=== PATIENT | male | born 1980 | race Caucasian/White ===

== ENCOUNTER 2024-12-03 01:56 | Day surgery (SDC) | payer MEDICAID, SELFPAY ==
--- OUTSIDE RECORDS SUMMARY | 2023-12-27 05:31 | XMS_ITS | Continuity of Care Document ---
Author Organization [facility] Address [address] [facility] [address] [place] [address] Phone Care Team Providers Care Ring Conductor Name Role Phone Keith Ibarra Unavailable Unavailable Procedures Procedure Date Therapeutic Activities Neuromuscular Re-Ed Therapeutic Exercise Hot or Cold Pack Therapeutic Activities Neuromuscular Re-Ed Therapeutic Exercise Hot or Cold Pack Neuromuscular Re-Ed Therapeutic Exercise Hot or Cold Pack Therapeutic Activities Neuromuscular Re-Ed Therapeutic Exercise Progress Note Therapeutic Activities Neuromuscular Re-Ed Therapeutic Exercise Therapeutic Activities Neuromuscular Re-Ed Therapeutic Exercise Hot or Cold Pack Therapeutic Activities Neuromuscular Re-Ed Therapeutic Exercise Hot or Cold Pack Therapeutic Activities Neuromuscular Re-Ed Therapeutic Exercise Hot or Cold Pack Therapeutic Activities Neuromuscular Re-Ed Therapeutic Exercise PT Evaluation Moderate Complexity Neuromuscular Re-Ed Therapeutic Exercise Progress Note Therapeutic Activities Neuromuscular Re-Ed Therapeutic Exercise Manual Therapy Hot or Cold Pack Therapeutic Activities Neuromuscular Re-Ed Therapeutic Exercise Manual Therapy Therapeutic Activities Neuromuscular Re-Ed Therapeutic Exercise Manual Therapy Hot or Cold Pack Therapeutic Activities Therapeutic Exercise Neuromuscular Re-Ed Manual Therapy Therapeutic Activities Hot or Cold Pack Neuromuscular Re-Ed Manual Therapy Therapeutic Exercise Progress Note Therapeutic Activities Neuromuscular Re-Ed Therapeutic Exercise Manual Therapy Hot or Cold Pack Therapeutic Activities Neuromuscular Re-Ed Therapeutic Exercise Therapeutic Activities Neuromuscular Re-Ed Therapeutic Exercise PT Re-evaluation Therapeutic Activities Neuromuscular Re-Ed Therapeutic Exercise Therapeutic Activities Neuromuscular Re-Ed Therapeutic Exercise Manual Therapy Hot or Cold Pack Therapeutic Activities Therapeutic Exercise Neuromuscular Re-Ed Therapeutic Activities Manual Therapy Therapeutic Exercise Neuromuscular Re-Ed Hot or Cold Pack Therapeutic Activities Therapeutic Exercise Neuromuscular Re-Ed Hot or Cold Pack Therapeutic Activities Neuromuscular Re-Ed Therapeutic Exercise Hot or Cold Pack Therapeutic Activities Neuromuscular Re-Ed Therapeutic Exercise Manual Therapy Hot or Cold Pack PT Re-evaluation Therapeutic Activities Neuromuscular Re-Ed Therapeutic Exercise Manual Therapy Hot or Cold Pack Therapeutic Activities Neuromuscular Re-Ed Therapeutic Exercise Manual Therapy Hot or Cold Pack Therapeutic Activities Neuromuscular Re-Ed Therapeutic Exercise Manual Therapy Hot or Cold Pack Therapeutic Activities Neuromuscular Re-Ed Therapeutic Exercise Manual Therapy PT Evaluation Moderate Complexity Neuromuscular Re-Ed Therapeutic Exercise Manual Therapy Therapeutic Activities Neuromuscular Re-Ed Therapeutic Exercise Therapeutic Activities Neuromuscular Re-Ed Therapeutic Exercise Therapeutic Activities Neuromuscular Re-Ed Therapeutic Exercise Therapeutic Activities Neuromuscular Re-Ed Therapeutic Exercise Therapeutic Activities Neuromuscular Re-Ed Therapeutic Exercise Manual Therapy Therapeutic Activities Neuromuscular Re-Ed Therapeutic Exercise Manual Therapy Therapeutic Activities Neuromuscular Re-Ed Therapeutic Exercise Manual Therapy PT Evaluation Moderate Complexity Therapeutic Activities Neuromuscular Re-Ed Manual Therapy Advance Directives Directive Yes / No Effective Date File Name No Information Encounters Encounter Description Practice Location Reason(s) For Visit Diagnoses Date Provider Providers Copied on Encounter [facility] [address] [place] [address], [place], [place], [id number], tel:[phone] Pres[place] No Information 4 Claudette Parker. [address] [facility], [address], [place], [address], [place]. tel:[phone] [facility] [address] [address], [place], [place], [id number], tel:[phone] [place] No Information 4 Dana Mehdi. . Referring Provider: Mingo Bass, [address] [place] [address] [address], [place], [address]. tel:[phone] [facility] [address] [address], [place], [place], [id number], [place] tel:[phone] [place] No Information 4 Dana Mehdi. . Referring Provider: Mingo Bass, [address] [place] [address] [address], [place], [address]. tel:[phone] [facility] [address] [place] [address], [place], [place], [id number], tel:[phone] Pres[place] No Information 4 Dana Mehdi. . Referring Provider: Mingo Bass, [address] [facility] [address], [place], [address]. tel:[phone] [facility] [address] [address], [place], [place], [id number], [place] tel:[phone] Pres[place] No Information 4 Dana Mehdi. . Referring Provider: Mingo Bass, [address] [place] [address] [address], [place], [address]. tel:[phone] [place] [address], [facility] [address], [place], [place], [id number], [place] tel:[phone] [place] No Information 4 Dana Mehdi. . Referring Provider: Mingo Bass, [address] [facility] [address], [place], [address]. tel:[phone] [place] [address], [facility] [address], [place], [place], [id number], [place] tel:[phone] [place] No Information 4 Huerta Peace. . Referring Provider: Mingo Bass, [address] [facility] [address], [place], [address]. tel:[phone] [place] [address], [facility] [address], [place], [place], [id number], [place] tel:[phone] Pres[place] No Information 0 8 4 Dana Mehdi. . Referring Provider: Mingo Bass, [address] [facility] [address], [place], [address]. tel:[phone] [place] [address], [facility] [address], [place], [place], [id number], [place] tel:[phone] Pres[place] No Information 0 3- 4 Dana Mehdi. . Referring Provider: Mingo Bass, [address] [facility] [address], [place], [address]. tel:[phone] [place] [address] [facility] [address], [place], [place], [address], [place] tel:[phone] [place] No Information 0 2- 4 Dana Mehdi. . Referring Provider: Mingo Bass, [address] [facility] [address], [place], [address]. tel:[phone] [place] [address], [address], [place], [place], [id number], [place] tel:[phone] Pres[place] No Information 7 4 Dana Mehdi. . Referring Provider: Mingo Bass, [address] [place] [address] [address], [place], [address]. tel:[phone] [address], [place], [place], [id number], tel:[phone] [place] No Information Jacob-2 1- 4 Muehl Keith. [address] [facility], [address], [place], [place], [facility], [place]. tel:[phone] Referring Provider: Dano Barney, [address] [place] [address], [place], [address]. tel:[phone] [address], [place], [place], [id number], tel:[phone] [place] No Information Jacob-1 4- 4 Abad Ge . Referring Provider: Dano Barney, [address] [place] [address], [place], [address]. tel:[phone] [facility] [address] [place] [address], [place], [place], [id number], [place] tel:[phone] [place] No Information Aug-1 0 4 Muehl Keith. [address] [facility], [address], [place], [address], [place]. tel:[phone] Referring Provider: Dano Barney, [address] [place] [address], [place], [address]. tel:[phone] [facility] [address] [facility] [address], [place], [place], [id number], [place] tel:[phone] [place] No Information Aug-0 4 Muehl Keith. [address] [facility], [address], [place], [address], [place]. tel:[phone] Referring Provider: Dano Barney, [address] [place] [address], [place], [address]. tel:[phone] [facility] [address] [place] [address] [address], [place], [place], [id number], [place] tel:[phone] Pres[place] No Information 0 6 4 Muehl Keith. [address] [facility], [address], [place], [place], [facility], [place]. tel:[phone] Referring Provider: Dano Haseebantia, [address] [place] [address], [place], [address]. tel:[phone] [address] [address], [place], [place], [id number], tel:[phone] Pres[place] No Information 0 3- 4 Angelica Arrington. [address] [facility], [address], [place], [place], [facility], [place]. tel:[phone] Referring Provider: Dano Barney, [address] [place] [address], [place], [address]. tel:[phone] [address], [id number], [phone] [place] No Information July-3 - 4 Abad Lauren. . Referring Provider: Dano Barney, [address] [place] [address], [address]. tel:[phone] [facility], [address] [place] [address], [place], [place], [id number], tel:[phone] [place] No Information July-2 4 Abad Lauren. . Referring Provider: Dano Barney, [address] [place] [address], [place], [address]. tel:[phone] [facility] [address] [place] [address], [id number], [place] tel:[phone] Pres[place] No Information 4 Muehl Keith. [address] [facility], [address], [place], [place], [facility], [place]. tel:[phone] Referring Provider: Dano Barney, [address] [place] [address], [place], [address]. tel:[phone] [facility] [address] [place], [place] [address], [place], [place], [id number], [place] tel:[phone] [place] No Information May-0 6- 4 Muehl Keith. [address] [place] [address], [address], [place], [facility], . tel:[phone] Referring Provider: Dano Barney, [address] [place] [address], [address]. tel:[phone] [facility] [address] [facility] [address], [place], [place], [address], [place] tel:[phone] [place] No Information May-0 3- 4 Muehl Keith. [address] [place] [address], [address], [place], [facility], . tel:[phone] Referring Provider: Dano Barney, [address] [place] [address], [address]. tel:[phone] [address], [place], [place], [id number], [place] tel:[phone] [place] No Information July-0 - 4 Muehl Keith. [address] [place] [address], [address], [place], [facility], [place]. tel:[phone] Referring Provider: Dano Barney, [address] [place] [address], [address]. tel:[phone] [facility] [address] [facility] [address], [place], [place], [id number], [place] tel:[phone] [place] No Information Jul-2 - 4 Muehl Keith. [address] [place] [address], [address], [address], [place]. tel:[phone] Referring Provider: Dano Barney, [address] [place] [address], [address]. tel:[phone] [address], [place], [place], [id number], tel:[phone] Pres[place] No Information 4 Muehl Keith. [address] [facility], [address], [place], [facility], . tel:[phone] Referring Provider: Dano Barney, [address] [place] [address], [address]. tel:[phone] [place] [address] [facility], [place], [place], [id number], [place] tel:[phone] Pres[place] No Information 4 Muehl Keith. [address] [facility], [address], [place], [place], [facility], . tel:[phone] Referring Provider: Dano Barney, [address] [place] [address], [address]. tel:[phone] [place], [place] [address] [address], [place], [id number], [place] tel:[phone] Pres[place] No Information 4 Muehl Keith. [address] [facility], [address], [place], [facility], [place]. tel:[phone] Referring Provider: Dano Barney, [address] [place] [address], [address]. tel:[phone] [address] [address] [facility], [id number], [place] tel:[phone] Pres[place] No Information 4 Muehl Keith. [address] [facility], [address], [place], [facility], [place]. tel:[phone] Referring Provider: Dano Barney, [address] [place] [address], [address]. tel:[phone] [address] [facility], [place], [id number], tel:[phone] Pres[place] No Information 4 Claudette Parker. [address] [facility], [address], [place], [address], [place]. tel:[phone] Referring Provider: Dano Barney, [address] [address], [place], [address]. tel:[phone] [facility], [place], [place], [address], [place] tel:[phone] Pres[place] No Information 4 Abad Lauren. . Referring Provider: Dano Barney, [address] [place] [address], [place], [address]. tel:[phone] [facility] [address], [place], [place], [address], [place] tel:[phone] [place] No Information 0 4 Claudette Parker. [address] [facility], [address], [place], [place], [facility], [place]. tel:[phone] Referring Provider: Dano Barney, [address] [address], [place], [address]. tel:[phone] [facility], [place], [place], [address], [place] tel:[phone] [place] No Information Aug-0 6- 3 Dellamano Benson. . [facility], [place], [place], [address], [place] tel:[phone] [place] No Information Jacob-0 2-202 3 Dellamano Benson. . [facility], [place], [place], [address], [place] tel:[phone] [place] No Information July-3 0- 3 Dellamano Benson. . [facility], [place], [place], [address], [place] tel:[phone] [place] No Information July-2 - 3 Dellamano Benson. . [facility], [place], [place], [address], tel:[phone] [place] No Information 3 Dellamano Benson. . [facility], [place], [place], [address], tel:[phone] [place] No Information 3 Dellamano Benson. . [facility] [address], [place], [place], [address], tel:[phone] [place] No Information 3 Dellamano Benson. . [facility] [address], [place], [place], [address], tel:[phone] [place] No Information 3 Dellamano Benson. . Family History Family Member Type Diagnosis Age At Onset No Information Payers Payer name Insurance type Covered libertarian ID Authoriza tion(s) [employer] SP [id number] Social History Type Description Quantity Date Captured Comments Sex Male Smoking Status No Information Chief Complaint And Reason For Visit No Information Reason For Referral Reason For Referral No Information Plan Of Treatment Date Type Action Status Referral Ordered: PCP timeframe: 1 week. (related to Overweight) ordered Referral Ordered: Weight management: Referral to physician timeframe: 1 Month. (related to Overweight) ordered History Of Present Illness Encounter Date Complaint History Of Prese nt Illness No Information Functional Status Date Functional Assessmen t No Information Instructions Date Instruction Additional Infor mation No Information Assessments Type Assessment Date No Information Patient Care Teams Name Effective Dates (start - stop) Status Members No Information
--- OUTSIDE RECORDS SUMMARY | 2024-02-08 04:00 | XMS_ITS ---
Author Organization [facility] , Address [address] [place] [address] Care Team Providers Care Funeral Planning Counselor Name Role Phone Vitaliy Bruno Unavailable [phone] ALLERGIES No Known Allergies RESULTS Component Value Reference Range Notes X ray : Cervical Spine 7 vie ws, AP, Lateral, Swimmers, Obliques, Flexion and Extension Reviewed date:02/08/2024 10:18:09 AM Interpretation:925 Performing Lab: Notes/Report: 925 X ray : Lumbar spine 5 views , AP, Lateral, Spot, Flexion and Extension Reviewed date:02/08/2024 10:18:14 AM Interpretation:925 Performing Lab: Notes/Report: 925 REASON FOR VISIT REPORT SCANNED INTO PATIENT DOCS/WORK-COMP MEDICATIONS Medication SIG (Take, Route, Fr equency, Duration) Notes Start Date End Date Status Venlafaxine HCl Acti ve Adderall Active Doxepin HCl Active traZODone HCl Active VITAL SIGNS BMI 38.31 kg/m2 02/08/2024 Height 68 in 02/08/2024 Weight 252 lbs 02/08/2024 Encounters Encounter Location Date Provider Diagnosis [facility] [address] [place] [address] 02/08/2024 Vitaliy Bruno Cervical pain (neck) M54.2 and Other low back pain M54.59 ASSESSMENTS Encounter Date Diagnosis Assessment Notes Treatment Notes Treatment Clinical Notes 02/08/2024 Cervical pain (neck) (ICD-10 - M54.2) 02/08/2024 Other low back pain (ICD-10 - M54.59) PLAN OF TREATMENT No Information
--- NOTE | 2024-11-27 07:04 | PM.IMHP ---
H&P: HPI History of Present Illness Date/Time: 11/27/24 07:04 Chief Complaint: Patient has catching locking and pain in the right knee. He has tenderness palpation medially and a positive Eleanor's. He has failed conservative treatment and has a positive MRI. He would like to consider arthroscopic intervention. Will proceed per his request. Review of Systems Musculoskeletal: Musculoskeletal: Reports arthralgias, Reports joint swelling and Reports stiffness Neurologic: Reports abnormal gait PMFSH Past Medical History Medical History Headaches due to old head injury Surgical History Surgical History H/O hand surgery History of ankle surgery Social History Social History Smoking status: Former smoker Smoking end date: 04/02/21 Alcohol intake: never Substance use type: does not use Do You Feel Safe in your Home?: Yes Lack of Transportation: No Lack of Food: Never True Current Housing: I Have Housing Concerned About Future Housing: No Difficulty Paying Gas/Electric Bills: No Difficulty Paying for Meds: No Currently Unemployed: No Education: Associate Degree Difficulty w/ Childcare or Family Care: No Living arrangements: with family Occupation/Education: occupation Additional occupation/education comments: ups Gender identity (if verbalized by the patient): Male Meds Home Medications and Allergies Home Medications ?Medication ?Instructions ?Recorded ?Confirmed ?Type dextroamphetamine-amphetamine 20 PO 01/08/24 11/13/24 History mg tablet doxepin 10 mg capsule mg PO DAILY 01/08/24 11/13/24 History trazodone 150 mg tablet mg PO 01/08/24 11/13/24 History venlafaxine 150 mg mg PO 01/08/24 11/13/24 History capsule,extended release 24 hr Allergies Allergy/AdvReac Type Severity Reaction Status Date / Time No Known Allergies Allergy Verified 11/13/24 07:15 Exam Eyes: General: appearance normal, both eyes and all related structures Neck: Neck: supple Resp: Effort & Inspection: normal respiratory effort Cardio: Rate: regular rate Rhythm: regular rhythm Knee X-Ray 11/13/24 Orthopedics Result Report 11/13/24 Assessment and Plan Assessment and plan (1) Acute medial meniscus tear of right knee: Code(s): S83.241A - Other tear of medial meniscus, current injury, right knee, initial encounter Status: Acute Assessment and Plan: Patient is knee pain right. He has catching locking and pain in his right knee. He has mechanical-type symptoms and failed conservative treatment. He would like to consider arthroscopic intervention. I have discussed the risks, benefits, limitations, and alternatives the patient in detail. He understands and agrees would like to proceed with arthroscopy partial meniscectomy proceed as indicated.
[2024-12-02 08:17] VITALS: BMI 33.5
--- NOTE | 2024-12-02 08:49 | PC.NURSE ---
Report to the Outpatient Waiting Room, entrance under the green pavilion located off [facility], at time _0700_ on date _[id number]_. Planned Procedure Time: _0900_.? Time changes happen often and if your time is changed the preop area will call you the afternoon before. - You and your visitor will be asked to self-screen and do not enter if you have any COVID symptoms. Please call surgeon if you need to reschedule. - A mask is optional within the hospital at this time. Patients may have clear liquids (water, carbonated beverages, clear teas, apple juice) until 3 hours prior to surgery with a maximum of 20 ounces. - No food from midnight until time of surgery and no smoking, or chewing tobacco (or any form of nicotine). No chewing gum, candy or mints. Take only the following medications with a SIP of water on the morning of surgery: __Venlafaxine____ DO NOT STOP ANY OF YOUR OTHER PRESCRIPTION MEDICATIONS PRIOR TO SURGERY EXCEPT THE FOLLOWING Hold all vitamins and supplements for 3 days per anesthesiologist. Medications to discontinue per physician Date to take last dose Please no make-up, nail kinyarwanda, hairspray, perfume, deodorant, or body powder the day of surgery.? No jewelry (including any body piercings) or valuables the day of surgery, leave them at home.? Please take a shower or bath the night before, or the morning of, surgery with an antibacterial soap.? Wear comfortable, loose fitting clothing.? - Jewelry must be removed prior to entering the operating room.? Rings and piercings that are not removed may be cut off. - The hospital will not accept responsibility for valuables.? - Please leave all valuables, including medications, at home the day of surgery. If you are going home after surgery, a licensed locomotive driver must drive you home.? - NO public transportation without another adult if you receive anesthesia. - We recommend that an adult stay with you for 24 hours following discharge. - We also recommend that you do not drive, make important decision, drink alcoholic beverages, or take any drugs that were not prescribed by your health care provider for at least 24 hours after your discharge time. Follow any additional instructions given to you from your surgeon. Telephone instructions given to __Nick___and asked if any additional questions and then verbalized understanding. Patient advised to call surgeon office or pre surgery nurse liaison [phone] if any additional questions.
[2024-12-03] VITALS (7 sets, daily range): BP systolic 124–150; BP diastolic 80–95; PULSE 89–104; RESP 16–24; TEMP 36.1–36.5; O2SAT 96–99
--- OUTSIDE RECORDS SUMMARY | 2024-12-03 02:00 | XMS_ITS | Encounter Summary ---
Author Organization [facility] Address [address] [place] [address] Care Team Providers Care Manager Developmental Name Role Phone Stephen Malloy MD Primary Care Provider [phone] Reason for Visit * Reason Onset Date Comments MEDICATION REFILL 07/01/2019 Encounter Details Date Type Department Care Team (Late st Contact Info) Description 07/01/2019 Refill [facility] - [facility]oped[facility] [address] [place] [address] Keith Harry, DO [address] [place] [phone] MEDICATION REFILL Social History Tobacco Use Types Packs/Day Years Used Date Smoking Tobacco: Every Day Cigarettes Smokeless Tobacco: Never Alcohol Use Standard Drinks/Week Comments Not Currently 0 (1 standard drink = 0.6 oz pur e alcohol) none for 6 months Sex and Gender Information Value Date Recorded Sex Assigned at Not on file 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 No / Unsure 07/04/2019 12:10 PM CDT documented as of this encounter Plan of Treatment Not on file documented as of this encounter Visit Diagnoses Diagnosis Traumatic tear of right rotator cuff, unspecified tear extent, initial encounter documented in this encounter Care Teams Manager Developmental Relationship Specialty Start Date End Date Stephen Malloy MD [address] [facility] [address] [place] [address] PCP - General 06/02/19 documented as of this encounter
--- OUTSIDE RECORDS SUMMARY | 2024-12-03 02:00 | XMS_ITS | Patient Health Record ---
Author Organization [facility] Address [address] [place] [address] Care Team Providers Care Environmental Remediation Specialist Name Role Phone Delmy Church Primary Care Provider Allergies Allergen (clinical drug ingredient) Drug/Non Drug Allergy documented on EMR Reaction Allergy Type Onset Date Status Silenor Doxepin hives Drug Allergy Active Reason For Referral No Information Medications Medication SIG (Take, Route, Frequency, Duration) Notes Start Date End Date Status Venlafaxine HCl ER 150 MG 1 capsule with food Orally Once a day; Duration: 30 days Active Adderall 20 MG 1 tablet Orally Thre e times a day; Duration: 30 days 01/16/2025 Active Adderall 20 MG 1 tablet Orally Thre e times a day; Duration: 30 days 11/21/2024 Active Adderall 20 MG 1 tablet Orally Thre e times a day; Duration: 30 days 12/19/2024 Active traZODone HCl 150 MG 1 tablet at bedtime Orally Once a day; Duration: 30 days Active Social History Tobacco Use: Social History Observation Description Date Details (start date - stop date) Never Smoker NA - NA Sex Assigned At : Social History Observation Description Sex Assigned At Male Tobacco Control (Standard) Question Answer Notes Tobacco use: Nonsmoker Problems Problem Type SNOMED Code ICD Code Onset Dates Problem Status W/U Status Risk Notes Problem Attention deficit hyperactivity disorder, 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), inattentive type (F90.0) Active confirmed Problem Generalized anxiety disorder (43194202) CORKY (generalized anxiety disorder) (F41.1) Active confirmed Problem Mild recurrent major depression (64087455) MDD (major depressive disorder), recurrent episode, mild (F33.0) Active confirmed Encounters Encounter Location Date Provider Diagnosis [facility] [address] [place] [address] 02/06/2024 Delmy Church ADHD (attention deficit hyperactivity disorder), inattentive type F90.0 ; MDD (major depressive disorder), recurrent episode, mild F33.0 and CORKY (generalized anxiety disorder) F41.[address] [place] [address] 05/23/2024 Delmy Church ADHD (attention deficit hyperactivity disorder), inattentive type F90.0 ; MDD (major depressive disorder), recurrent episode, mild F33.0 and CORKY (generalized anxiety disorder) F41.1 [facility] [address] [place] [address] 08/26/2024 Delmy Church ADHD (attention deficit hyperactivity disorder), inattentive type F90.0 ; MDD (major depressive disorder), recurrent episode, mild F33.0 and CORKY (generalized anxiety disorder) F41.[address] [address] 11/21/2024 Delmy Church ADHD (attention deficit hyperactivity disorder), inattentive type F90.0 ; MDD (major depressive disorder), recurrent episode, mild F33.0 and CORKY (generalized anxiety disorder) F41.[address] [place] [address] 12/17/2023 Delmy Church [facility] [address] [place] [address] 12/26/2023 Delmy Church ADHD (attention deficit hyperactivity disorder), inattentive type F90.[address] [place] [address] 06/20/2024 Delmy Church [address] [place] [address] 08/20/2024 Delmy Church [address] [place] [address] 11/11/2024 Delmy Church MDD (major depressiv e disorder), recurrent episode, mild F33.0 and ADHD (attention deficit hyperactivity disorder), inattentive type F90.[address] [place] [address] 01/21/2024 Delmy Church ADHD (attention deficit hyperactivity disorder), inattentive type F90.[address] [place] [address] 01/21/2024 Delmy Church [address] [place] [address] 04/14/2024 Delmy Church [address] [place] [address] 05/10/2024 Delmy Church ADHD (attention deficit hyperactivity disorder), inattentive type F90.0 and MDD (major depressive disorder), recurrent episode, mild F33.[address] [place] [address] 05/10/2024 Delmy Church [address] [place] [address] 05/13/2024 Delmy Church [address] [place] [address] 06/20/2024 Delmy Chruch [address] [place] [address] 08/11/2024 Delmy Church ADHD (attention deficit hyperactivity disorder), inattentive type F90.[address] [place] [address] 08/11/2024 Delmy Church [address] [place] [address] 08/21/[address] [place] [address] 08/21/2024 Delmy Church [address] [address] 08/21/[address] [address] 08/21/2024 Delmy Church [address] [address] 08/26/2024 Delmy Church Assessments Encounter Date Diagnosis (ICD Code) Assessment Notes Treatment Notes Treatment Clinical Notes Section Notes 12/26/2023 ADHD (attention deficit hyperactivity disorder), inattentive type (ICD-10 - F90.0) 01/21/2024 ADHD (attention deficit hyperactivity disorder), inattentive type (ICD-10 - F90.0) 02/06/2024 ADHD (attention deficit hyperactivity disorder), inattentive type (ICD-10 - F90.0) 05/10/2024 ADHD (attention deficit hyperactivity disorder), inattentive type (ICD-10 - F90.0) 05/23/2024 ADHD (attention deficit hyperactivity disorder), inattentive type (ICD-10 - F90.0) 08/11/2024 ADHD (attention deficit hyperactivity disorder), inattentive type (ICD-10 - F90.0) 08/26/2024 ADHD (attention deficit hyperactivity disorder), inattentive type (ICD-10 - F90.0) 11/11/2024 MDD (major depressive disorder), recurrent episode, mild (ICD-10 - F33.0) 11/21/2024 ADHD (attention deficit hyperactivity disorder), inattentive type (ICD-10 - F90.0) 08/26/2024 MDD (major depressive disorder), recurrent episode, mild (ICD-10 - F33.0) 11/11/2024 ADHD (attention deficit hyperactivity disorder), inattentive type (ICD-10 - F90.0) 02/06/2024 MDD (major depressive disorder), recurrent episode, mild (ICD-10 - F33.0) 05/23/2024 MDD (major depressive disorder), recurrent episode, mild (ICD-10 - F33.0) 05/10/2024 MDD (major depressive disorder), recurrent episode, mild (ICD-10 - F33.0) 11/21/2024 MDD (major depressive disorder), recurrent episode, mild (ICD-10 - F33.0) 05/23/2024 CORKY (generalized anxiety disorder) (ICD-10 - F41.1) 02/06/2024 CORKY (generalized anxiety disorder) (ICD-10 - F41.1) 08/26/2024 CORKY (generalized anxiety disorder) (ICD-10 - F41.1) 11/21/2024 CORKY (generalized anxiety disorder) (ICD-10 - F41.1) 02/06/2024 Other Continue curren t medications. Reviewed Prescription Monitoring program. Continue services as scheduled. Labs completed recently. May self-administer medications or be administered own oral medications per [facility] protocols. Provided informed consent with understanding of side effects, adverse effects, risks and benefits as well as alternative treatments as previously discussed and with the above recommended medications & other aspects of the treatment program. Agrees to return sooner if symptoms worsen or suicidal or homicidal ideations occur. 05/23/2024 Other Continue curren t medications. Reviewed Prescription Monitoring program. Continue services as scheduled. Labs completed recently. May self-administer medications or be administered own oral medications per [facility] protocols. Provided informed consent with understanding of side effects, adverse effects, risks and benefits as well as alternative treatments as previously discussed and with the above recommended medications & other aspects of the treatment program. Agrees to return sooner if symptoms worsen or suicidal or homicidal ideations occur. 08/26/2024 Other Continue current medications. Reviewed Prescription Monitoring program. Continue services as scheduled. Encouraged sunscreen use. Labs completed recently. May self-administer medications or be administered own oral medications per [facility] protocols. Provided informed consent with understanding of side effects, adverse effects, risks and benefits as well as alternative treatments as previously discussed and with the above recommended medications & other aspects of the treatment program. Agrees to return sooner if symptoms worsen or suicidal or homicidal ideations occur. 11/21/2024 Other Stop doxepin and add to allergy list. Continue services as scheduled. Labs completed recently. May self-administer medications or be administered own oral medications per [facility] protocols. Provided informed consent with understanding of side effects, adverse effects, risks and benefits as well as alternative treatments as previously discussed and with the above recommended medications & other aspects of the treatment program. Agrees to return sooner if symptoms worsen or suicidal or homicidal ideations occur. Plan Of Treatment No Information Insurance Providers Payer Name Payer Address Payer Phone Subscriber Number Group Number Insured Name Patient Relationship to Insured Coverage Start Date Coverage End Date MEDICAID [address] [place] [address] [id number] Nick Cleveland Self - patient is the insured [address] [phone] [id number] Nick Cleveland Self - patient is the insured 4 4 MEDICAID [employer] [address] [place] [address] [id number] Nick Cleveland Self - patient is the insured 4 Medical (General) History Medical History History ICD Code Torn meniscus Surgical History Surgery Date(Month/Year) Ankle surgery 20 years ago Surgery on his hand 4 years ago Hospitalization History Reason Date(Month/Year)
--- OUTSIDE RECORDS SUMMARY | 2024-12-03 02:00 | XMS_ITS | Clinical Summary ---
Author Organization [facility] Address [address] [place] [address] Phone Care Team Providers Care Furnace Installer Helper Name Role Phone Stephen Malloy MD Primary Care Provider [phone] Allergies No known active allergies Medications sertraline (ZOLOFT) 50 MG Tablet TK 1 T PO QD 0 08/17/2017 Active Active Problems Problem Noted Date Diagnosed Date Polycythemia 08/24/2017 Tobacco abuse 08/24/2017 Dehydration 08/24/2017 Family History Relation Name Status Comments Father Alive Mother Alive Social History Tobacco Use Types Packs/Day Years Used Date Smoking Tobacco: Former Cigarettes 1 10 Smokeless Tobacco: Never Alcohol Use Standard Drinks/Week Comments Yes 0 (1 standard drink = 0.6 oz pur e alcohol) Sex and Gender Information Value Date Recorded Sex Assigned at Not on file Legal Sex Male 11:01 AM CDT Gender Identity Not on file Sexual Orientation Not on file Last Filed Vital Signs Vital Sign Reading Time Taken Comments Blood Pressure 146/91 10/17/2017 3:45 PM CDT Pulse 98 10/17/2017 3:45 PM CDT Temperature 36.1 C (96.9 F) 10/17/2017 3:45 PM CDT Respiratory Rate 20 10/17/2017 3:45 PM CDT Oxygen Saturation 98% 10/17/2017 3:45 PM CDT Inhaled Oxygen Concentration - - Weight 98 kg (216 lb 1.6 oz) 10/17/2017 3:45 PM CDT Height 170.2 cm (5' 7) 10/17/2017 3:45 PM CDT Body Mass Index 33.85 10/17/2017 3:45 PM CDT Plan of Treatment Health Maintenance Due Date Last Done Comments Hepatitis C Virus (HCV) Screening 1979 TdaP Immunization 1979 Hepatitis B Immunization (1 of 3 - 19+ 3-dose series) 1998 Human Papillomavirus (HPV) Immunization (1 - 3-dose SCDM series) 2006 Cologuard 2024 Colonoscopy 2024 Colorectal Cancer Screening 2024 Immunochemical Fecal Occult Blood 2024 Influenza Immunization (#1) 2024 SARS-COV-2 Immunization ( - season) 2024 Respiratory Syncytial Virus (RSV) Immunization (Adult) (1 - 1-dose 75+ series) 2054 Meningococcal Immunization (ACWY) Aged Out No longer eligible based on patient's age to complete this topic Pneumococcal Immunization Combined Aged Out No longer eligible based on patient's age to complete this topic Rotavirus Immunization Aged Out No lo nger eligible based on patient's age to complete this topic Care Teams Furnace Installer Helper Relationship Specialty Start Date End Date Stephen Malloy MD [address] [place] [id number] PCP - General Family Medicine 08/24/17
--- OUTSIDE RECORDS SUMMARY | 2024-12-03 02:02 | XMS_ITS | Clinical Summary ---
Author Organization [facility] Address [facility] [place] [address] Care Team Providers Care Quality Control Manager Name Role Phone Eleazar Hull MD Primary Care Provider [phone] Allergies No known active allergies Medications amphetamine-dextro amphetamine XR (ADDERALL XR) 20 MG 24 hr capsule 11/29/2023 Ac tive doxepin (SINEQUAN) 10 MG capsule 12/05/2023 Activ e topiramate (TOPAMAX) 25 MG tablet 10/08/2023 Active traZODone (DESYREL) 150 MG tablet 12/05/2023 Active venlafaxine XR (EFFEXOR-XR) 150 MG 24 hr capsule 12/05/2023 Ac tive Encounters Date Type Department Care Team Description 11/21/2024 Orders Only [facility] Medical [facility] [place] [address] [place] [address] Mario Goodson PA 11/19/2024 Telephone [facility] [place] [address] [place] [address] Mario Goodson PA Question 11/13/2024 Scan [facility] SRVCS Scanned, [facility] 09/24/2024 Telephone [facility] - [place] [address] [place] [phone] Eleazar Hull MD Referral 09/12/2024 11:00 AM CDT Office Visit [facility] Family [facility] - [place] [address] [place] [address] Eleazar Hull MD Knee Pain (Patient is present for left knee pain) 09/12/2024 Travel from Last 3 Months Immunizations Immunization Administration Dates Next Due Tdap (Boostrix) 05/24/2019 Family History Medical History Relation Comments No Known Problems Father No Known Problems Mother Relation Status Comments Father Alive Mother Alive Social History Tobacco Use Types Packs/Day Years Used Date Smoking Tobacco: Former Cigarettes Q uit: 2021 Passive Smoke Exposure: Past Smokeless Tobacco: Never Tobacco Cessation:Counseling Given: No Alcohol Use Standard Drinks/Week Comments Yes 0 (1 standard drink = 0.6 oz pur e alcohol) occassionally PHQ-2 Answer Date Recorded Patient Health Questionnaire-2 Score 0 12/19/2023 Sex and Gender Information Value Date Recorded Sex Assigned at Male 07/06/2024 4:39 PM CDT Legal Sex Male 5:50 PM CDT Gender Identity Not on file Sexual Orientation Straight 07/17/2022 10 :46 AM CDT Last Filed Vital Signs Vital Sign Reading Time Taken Comments Blood Pressure 130/80 09/12/2024 11:27 AM CDT Pulse 78 09/12/2024 11:18 AM CDT Temperature 36.7 C (98.1 F) 09/12/2024 11:18 AM CDT Respiratory Rate 16 07/06/2024 4:32 PM CDT Oxygen Saturation 98% 09/12/2024 11:18 AM CDT Inhaled Oxygen Concentration - - Weight 93.4 kg (206 lb) 09/12/2024 11:18 AM CDT Height 170.2 cm (5' 7) 07/06/2024 4:32 PM CDT Body Mass Index 32.26 07/06/2024 4:32 PM CDT Plan of Treatment Health Maintenance Due Date Last Done Comments Colorectal Cancer Screening Colonoscopy (10 Years) 1979 Annual Physical 1982 Hepatitis C 1997 Hepatitis B Vaccines (1 of 3 - 19+ 3-dose series) 1998 HPV Vaccines (1 - 3-dose SCD M series) 2006 PHQ-2 (Physician [place]) 04/02/2024 12/19/2023 COVID-19 Vaccine (1 - 2023-2 5 season) 2024 DTaP, Tdap and Td Vaccines ( 2 - Td or Tdap) 05/24/2029 05/24/2019 Meningococcal B Vaccine Aged Out No l onger eligible based on patient's age to complete this topic Meningococcal Vaccine Aged Out No sole hernan eligible based on patient's age to complete this topic Pneumococcal Vaccine: Pediat rics (0 to 5 Years) and At-Risk Patients (6 to 49 Years) Aged Out No longer eligi ble based on patient's age to complete this topic RSV Immunizations Under 20 Months Aged Out No longer eligible based on patient's age to complete this topic Insurance MEDICAID Advance Directives Documents on File Type Date Recorded Patient Comber Tender Expl anation Legal Documents 01/10/2024 11:02 AM Care Teams Quality Control Manager Relationship Specialty Start Date End Date Eleazar Hull MD [address] [place] [address] PCP - General FAMILY PRACTICE 12/19/23 12/12/24
--- OUTSIDE RECORDS SUMMARY | 2024-12-03 02:03 | XMS_ITS | Patient Health Record ---
Author Organization [facility], Address [address] [address] Care Team Providers Care Talent Development Analyst Name Role Phone DamionVitaliy robertson Unavailable [phone] ALLERGIES No Known Allergies RESULTS Component Value Reference Range Notes X ray : Cervical Spine 7 vie ws, AP, Lateral, Swimmers, Obliques, Flexion and Extension Reviewed date:02/08/2024 10:18:09 AM Interpretation:925 Performing Lab: Notes/Report: 925 X ray : Lumbar spine 5 views , AP, Lateral, Spot, Flexion and Extension Reviewed date:02/08/2024 10:18:14 AM Interpretation:925 Performing Lab: Notes/Report: 925 REASON FOR REFERRAL No Information MEDICATIONS Medication SIG (Take, Route, Fr equency, Duration) Notes Start Date End Date Status Venlafaxine HCl Acti ve Adderall Active Doxepin HCl Active traZODone HCl Active VITAL SIGNS Height 68 in 02/08/2024 Weight 252 lbs 02/08/2024 BMI 38.31 kg/m2 02/08/2024 Encounters Encounter Location Date Provider Diagnosis [facility], [address] [address] 02/08/2024 Vitaliy Bruno Cervical pain (neck) M54.2 and Other low back pain M54.59 ASSESSMENTS Encounter Date Diagnosis Assessment Notes Treatment Notes Treatment Clinical Notes 02/08/2024 Cervical pain (neck) (ICD-10 - M54.2) 02/08/2024 Other low back pain (ICD-10 - M54.59) PLAN OF TREATMENT No Information Insurance Providers Payer Name Payer Address Payer Phone Subscriber Number Group Number Insured Name Patient Relationship to Insured Coverage Start Date Coverage End Date [place] [address] [address] [place] [address] [id number] Nick Cleveland Self - patient is the insured 4 MEDICAL (GENERAL) HISTORY Medical History History ICD Code Depression Anxiety Surgical History Surgery Date(Month/Year) Right Ankle 1997 Right Hand 2019
--- NOTE | 2024-12-03 06:04 | ECG_ITS ---
Test Date: 2024-12-03 07:40:21 Measurements Intervals [place] Rate: 95 P: 43 MS: 160 QRS: -9 QRSD: 104 T: 45 QT: 328 QTc: 414 Interpretive Statements SINUS RHYTHM MINIMAL VOLTAGE CRITERIA FOR LVH, CONSIDER NORMAL VARIANT [MEETS CRITERIA IN ONE OF: R(aVL), S(V1), R(V5), R(V5/V6)+S(V1)] NONSPECIFIC T-WAVE ABNORMALITY ABNORMAL ECG No previous ECG available for comparison Electronically Signed On 12-03-2024 11:15:48 CDT by Tani Jones M.D.
--- NOTE | 2024-12-03 06:50 | WPDHPUPDATE1 ---
History and Physical Update Update Date/Time: 12/03/24 06:50 History and Physical has been reviewed, including an updated exam of the patient. There are NO changes in the patient's condition. Risks, benefits, and alternatives have been discussed and questions answered. Patient agrees to proceed with procedure. Arthroscopy, Partial meniscectomy, Proceed as indicated.
[2024-12-03] MEDS: ACETAMINOPHEN 500 MG TABLET 1000 MG PO (07:12)
[2024-12-03] MEDS: LACTATED RINGERS 1,000 ML 30 ML IV CONT (07:25)
[2024-12-03] MEDS: KETOROLAC 15 MG/ML VIAL (*BKC) IV PUSH (07:28)
--- NOTE | 2024-12-03 08:30 | WPDANESEPPF ---
Anes - Initial Pre Proc Eval Procedure: Operation Date: 12/03/24 09:00 Proposed Procedures p Right Knee Arthroscopy, Partial Meniscectomy, Proceed As Indicated - Jose Guadalupe MD Date/Time: 12/03/24 08:30 Surgeon: Jose Guadalupe MD Pre Op Diagnosis: right knee medial meniscal tear Patient Data Age: 44 Gender: M Height: 1.73 m Weight: 105.6 kg Last Vital Signs Temp 36.1 C L 12/03/24 07:00 Pulse 104 H 12/03/24 07:00 Resp 18 12/03/24 07:00 BP 150/85 H 12/03/24 07:00 Pulse Ox 98 12/03/24 07:00 O2 Del Method Room Air 12/03/24 07:00 Allergies Allergy/AdvReac Type Severity Reaction Status Date / Time No Known Allergies Allergy Verified 12/03/24 07:04 Home Medications ?Medication ?Instructions ?Recorded ?Confirmed ?Type dextroamphetamine-amphetamine 20 20 mg PO TID 01/08/24 12/03/24 History mg tablet doxepin 10 mg capsule 10 mg PO HS 01/08/24 12/03/24 History trazodone 150 mg tablet 150 mg PO HS 01/08/24 12/03/24 History venlafaxine 150 mg 150 mg PO DAILY 01/08/24 12/03/24 History capsule,extended release 24 hr hydrocodone 5 mg-acetaminophen 325 1 tablet PO Q4H PRN pain #30 tabs 12/03/24 Rx mg tablet Patient hx anesthesia problems: none Family hx anesthesia problems: none Results Review: All pre-operative results and documents have been reviewed as part of the pre-operative evaluation. [facility] Past Medical History Medical History Headaches due to old head injury Surgical History Surgical History H/O hand surgery History of ankle surgery Social History Social History Smoking packs per day: 2 Smoking cigarettes per day: 40.0 Years smoked: 20 Smoking pack-years: 40.00 Smoking status: Former smoker Smoking end date: 12/02/20 Alcohol intake: never Substance use type: does not use Do You Feel Safe in your Home?: Yes Lack of Transportation: No Lack of Food: Never True Current Housing: I Have Housing Concerned About Future Housing: No Difficulty Paying Gas/Electric Bills: No Difficulty Paying for Meds: No Currently Unemployed: No Education: Associate Degree Difficulty w/ Childcare or Family Care: No Living arrangements: with family Occupation/Education: occupation Additional occupation/education comments: ups Gender identity (if verbalized by the patient): Male Spiritual care concerns: No Anes - Eval Final PreProcedure Day of Procedure 12/03/24 08:30 Patient weight: obese Heart: regular rate and rhythm Lungs: decreased breath sounds Airway: Mallampati scale class III Neurological: alert and oriented Last oral intake: >/= 8 hours ASA classification: III Emergent: no Anesthetic plan: proceed Anesthesia type and monitoring: general LMA and standard monitoring Results Review: All pre-operative results and documents have been reviewed as part of the pre-operative evaluation. Informed Consent: The patient's anesthetic plan and its attendant risks and benefits were discussed with the patient/family/POA. Questions were solicited and answers provided to the satisfaction of the patient/family/POA.
[2024-12-03] MEDS: ceFAZolin 2 GM in SODIUM CHLORIDE 0.9% IV 50 ML 100 ML IVPB (08:40)
[2024-12-03] MEDS: LIDO 1%/EPINEPHRINE 1:100,000 20 ML VIAL 30 ML INFILTRATE (08:57)
--- NOTE | 2024-12-03 09:18 | W.PM.PROC2 ---
Procedure Note - Detailed Date of Procedure 12/03/24 Pre-op Diagnosis Right knee medial meniscal tear Post-op Diagnosis Same Procedure Performed Arthroscopy right knee partial medial meniscectomy Surgeon Jose Guadalupe MD Anesthesia General Indications Pain, Locking and Catching Description of Procedure Patient brought to operating room # 7. An anesthetic was administered. The knee was sterilely prepped and draped in the usual manner. Standard portals were used. Superior medial portal was used for the outflow cannula, inferior lateral portal was used for the scope, inferior medial portal was used for the instruments. Arthroscopy was performed, the patellar femoral joint degenerative changes. The medial compartment showed a complex tear. The lateral compartment showed fraying. The ACL was intact. Using baskets and asim the meniscal tear was trimmed back to a stable base so the nothing further could be pulled into the joint. His plica was somewhat thickened this was debrided as well. Any loose or delaminated fragments were gently trimmed to a stable base. At this point the instruments were withdrawn, sutures placed and patient left the operating room in satisfactory condition. Estimated Blood Loss 20 Drains No Packing No Pathology None sent Complications No immediate complications Condition Stable Disposition PACU [facility] Billing Surgery - Charge Forward: Surgery Billing ([id number] MMT)
[2024-12-03] MEDS: oxyCODONE HCL (*CRX) 5 MG TAB IR PO (10:32)
== END 2024-12-03 11:00 | disposition home or self-care (01) ==
PROVIDERS: Visit Provider Orthopaedic Surgery
PROC: (CPT 29870; principal; 2024-12-03 09:00)
DX: S83.231A Complex tear of medial meniscus, current injury, right knee, initial encounter (principal); X58.XXXA Exposure to other specified factors, initial encounter; Z87.891 Personal history of nicotine dependence; E66.9 Obesity, unspecified; Z68.35 Body mass index [BMI] 35.0-35.9, adult
CPT/HCPCS: 29881; 93005; J0690; A9270; J1100; J1885; J2004; J2250; J2270; J2704; J7120